=== PATIENT | male | born 1990 | race Caucasian/White ===

== ENCOUNTER → 2021-03-25 | Outpatient (CLI) | payer MEDICAID ==
[~2021-03-25] MED LIST: CALCIUM CARBON500 M1 PO; CARBATROL300 MG PO; COLACE LIQUI10 MG/ML PEG; DEPAKOTE500 M1 PO; DSS100 MG PO; FIBER CHOICE1 CTB PO; ISOSOURCE PEG; OMNICEF250 MG/5 M PO; PRILOSEC 20MG20 MG PO; REGLAN 10M10 MG/2 ML; REGLAN 10MG/11 MG/ML PEG; REGLAN 5MG5 MG PO; TEGRETOL SUS20 MG/ML PO; ULTRAM50 MG PEG; UNABLE; VERAMYST27.5 MCG/A NS; VITAMIN D50000 IU PEG; ZYRTEC 10MG10 MG PO; ZYRTEC SYRUP1 MG/ML PO
== END ==
LOC: DIET.TELE 13:37
DX: R63.4 Abnormal weight loss (principal); G80.9 Cerebral palsy, unspecified; R13.10 Dysphagia, unspecified

== ENCOUNTER 2021-08-20 13:49 | Emergency (ER) | payer MEDICAID ==
[2021-08-20 15:02] VITALS: TEMP 98.1
[2021-08-20 15:29] LABS: HEMATOCRIT 39.1 % (42.0-52.0); HEMOGLOBIN 13.2 g/dl (13.5-18.0); MEAN CELL VOLUME 92 fl (80.0-100.0); MEAN CORPUSCULAR HEMOGLOBIN 31 pg (27-31); MEAN CORPUSCULAR HGB CONC 34 g/dl (33.0-37.0); MEAN PLATELET VOLUME 10.6 fl (7.4-10.4); PLATELET COUNT 250 K/mm3 (130-400); RED BLOOD COUNT 4.25 M/mm3 (4.20-5.60); REDCELL DISTRIBUTION WIDTH-CV 12.8 % (11.5-14.5)
[2021-08-20 15:49] LABS: BAND 9 % (0-10); LYMPHOCYTE 18 % (20.0-51.0); NEUTROPHILS 61 % (42.0-75.2); PLATELET ESTIMATE NORMAL (NORMAL)
[2021-08-20 15:50] LABS: ALANINE AMINOTRANSFERASE 19 U/L (0-55); ALBUMIN 3.6 gm/dL (3.5-5.0); ALKALINE PHOSPHATASE 73 U/L (40-150); ANION GAP 13 mmol/L (7-16); AST,SGOT 22 U/L (5-34); BILIRUBIN,TOTAL 0.5 mg/dL (0.2-1.2); BLOOD UREA NITROGEN 7 mg/dL (9-21); C-REACTIVE PROTEIN 3.44 mg/dL (0.00-0.50); CALCIUM 9.1 mg/dL (8.4-10.2); CARBON DIOXIDE 26 mmol/L (22-29); CHLORIDE 91 mmol/L (98-107); CREATININE, serum 0.49 mg/dL (0.72-1.25); GLUCOSE 88 mg/dL (70-99); LIPASE < 10 U/L (8-78); POTASSIUM 4.2 mmol/L (3.5-4.5); SODIUM 130 mmol/L (136-145); TOTAL PROTEIN 8.1 gm/dL (6.2-8.1)
[2021-08-20] MEDS ORDERED: SIMETHICONE 1 ML1 ML PEG (21:48)
[2021-08-20 22:00] VITALS: BP 132/61; PULSE 88
== END 2021-08-20 22:10 | disposition home or self-care (01) ==
LOC: COL.ER 13:49
PROVIDERS: Emergency Medicine
DX: R14.0 Abdominal distension (gaseous) (principal); K94.29 Other complications of gastrostomy
CPT/HCPCS: J2060; J3010; J7030; Q9967

== ENCOUNTER 2021-09-02 00:24 | Emergency (ER) | payer MEDICAID ==
[~2021-09-02 00:24] MED LIST changes: +SIMETHICONE 1 ML1 ML PEG
[2021-09-02 00:25] VITALS: TEMP 98.4
[2021-09-02 01:03] LABS: BASO % 0.8 % (0.0-2.0); EOS % 0.6 % (0.0-4.0); GRAN # 2.3 K/mm3 (1.4-6.5); GRAN % 43.1 % (42.2-75.2); HEMOGLOBIN 12.7 g/dl (13.5-18.0); LYMPH # 1.7 K/mm3 (1.2-3.4); LYMPH % 31.9 % (20.0-51.0); MEAN CELL VOLUME 90 fl (80.0-100.0); MEAN CORPUSCULAR HEMOGLOBIN 31 pg (27-31); MEAN CORPUSCULAR HGB CONC 35 g/dl (33.0-37.0); MEAN PLATELET VOLUME 10.9 fl (7.4-10.4); MONO # 1.2 K/mm3 (0.1-0.6); MONO % 23.2 % (1.7-9.3); PLATELET COUNT 213 K/mm3 (130-400); RED BLOOD COUNT 4.09 M/mm3 (4.20-5.60); REDCELL DISTRIBUTION WIDTH-CV 12.6 % (11.5-14.5)
[2021-09-02 01:08] LABS: HEMATOCRIT 36.8 % (42.0-52.0)
[2021-09-02 01:09] LABS: INR 1.1 (0.8-3.0); PROTHROMBIN TIME 12.4 SECONDS (9.7-12.8)
[2021-09-02 01:11] LABS: PARTIAL THROMBOPLASTIN TIME 29.2 SECONDS (26.0-37.0)
[2021-09-02 01:18] LABS: CALCIUM 8.6 mg/dL (8.4-10.2); CREATININE, serum 0.48 mg/dL (0.72-1.25); POTASSIUM 3.9 mmol/L (3.5-4.5)
[2021-09-02] MEDS ORDERED: CEPHALEXIN500 M1 PO (02:17)
[2021-09-02 03:13] VITALS: BP 160/94; PULSE 97
== END 2021-09-02 04:06 | disposition home or self-care (01) ==
LOC: COL.ER 00:24
PROVIDERS: Emergency Medicine
DX: U07.1 COVID-19 (principal); S79.911A Unspecified injury of right hip, initial encounter; Z86.69 Personal history of other diseases of the nervous system and sense organs; W06.XXXA Fall from bed, initial encounter
CPT/HCPCS: J0690; J3010; J7040

== ENCOUNTER 2022-04-16 14:30 | Inpatient (IN) | payer MEDICAID ==
[2022-04-16] VITALS (205 sets, daily range): BP systolic 194; BP diastolic 98; PULSE 105; TEMP 97.7; O2SAT 48–100
[~2022-04-16] VITALS: Ht 157.5 cm; Wt 75.6 kg
[~2022-04-16 14:30] MED LIST changes: +CEPHALEXIN500 M1 PO
[2022-04-16 15:44] LABS: COLLECTION METHOD CATHETER
[2022-04-16 15:47] LABS: MEAN CELL VOLUME 88 fl (80.0-100.0); MEAN CORPUSCULAR HEMOGLOBIN 32 pg (27-31); MEAN CORPUSCULAR HGB CONC 36 g/dl (33.0-37.0); MEAN PLATELET VOLUME 11.3 fl (7.4-10.4); PLATELET COUNT 203 K/mm3 (130-400); RED BLOOD COUNT 3.81 M/mm3 (4.20-5.60); REDCELL DISTRIBUTION WIDTH-CV 12.5 % (11.5-14.5)
[2022-04-16 15:52] LABS: HEMATOCRIT 33.4 % (42.0-52.0)
[2022-04-16 16:05] LABS: PH 8.5 (5.0-8.5); URINE APPEARANCE Hazy (CLEAR/HAZY); URINE BLOOD TRACE-INTACT (NEGATIVE); URINE COLOR Yellow (YELLOW); URINE GLUCOSE Negative (NEGATIVE); URINE KETONE Negative (NEGATIVE); URINE NITRATE Negative (NEGATIVE); URINE PROTEIN(semi-quant) 1+ (NEGATIVE)
[2022-04-16 16:08] LABS: SQUAMOUS EPITHELIAL None Seen /hpf (0-10); URINE BACTERIA None Seen /hpf (NONE SEEN); URINE WBC 0-2 /hpf (0-2)
[2022-04-16 16:09] LABS: ALBUMIN 3.4 gm/dL (3.5-5.0); BILIRUBIN,TOTAL 0.6 mg/dL (0.2-1.2); CALCIUM 8.8 mg/dL (8.4-10.2); CREATININE, serum 0.55 mg/dL (0.72-1.25); POTASSIUM 3.7 mmol/L (3.5-4.5)
[2022-04-16] MEDS ORDERED: DEPAKENE 250 MG/1 ML PO (16:17)
[2022-04-16] MEDS ORDERED: ZYRTEC SYRUP1 MG/ML PO (16:19)
[2022-04-16 16:25] LABS: BAND 5 % (0-10); EOSINOPHIL 1 % (0-4); LYMPHOCYTE 6 % (20.0-51.0); NEUTROPHILS 75 % (42.0-75.2); PLATELET ESTIMATE NORMAL (NORMAL)
[2022-04-16] MEDS ORDERED: PEPCID COMPLETE1 CTB PO (16:25)
[2022-04-16] MEDS ORDERED: VITAMIN D3500 UNIT/5 PO (16:27)
[2022-04-16] MEDS ORDERED: SILACE150 MG/15 PO (16:28)
[2022-04-16] MEDS ORDERED: FLONASE NASAL S16 GM NS (17:11)
[2022-04-16] MEDS ORDERED: MIACALCIN NASA3.7 ML NS (17:12)
[2022-04-16] MEDS ORDERED: ZEGERID1 PK1 PO (17:14)
--- NOTE | 2022-04-16 18:55 | NUR ---
PT ADMITTED FROM ED FOR SEPSIS AND FALL. PT IS NON VERBAL, DEAF AND BLIND. PT IS HYPERTENSIVE AND TACHYCARDIC. PT IN BED WITH BEDALARM ACTIVE. 1910- VIOLETA MYRICK CALLED REGARDING HTN, AND IVF. STATED GIVE THE 2 NS BOLUS' AND IVF. WILL GIVE PRN LABATELOL. REPORT GIVEN TO VAN EL.
--- NOTE | 2022-04-16 19:32 | NUR ---
Vancomycin Initial Dosing Pharmacy Note Ordering provider: Dennis Lugo MD Indication/duration: Empiric, 7 days LABS: SCr 0.55, CrCl~145, GFR 134 Recommendation: Received loading dose of Vancomycin 1.5 gm IV x1 in ED. Continue Vancomycin 1 gm IV q8h. Pharmacy will continue to closely monitor and check Vancomycin trough on 04/18/22. Loading dose: 1.5 grams Maintenance dose: 1 gram every 8 hours Trough goal: 15-20 ug/mL
[2022-04-16 20:03] LABS: CALCIUM 8.3 mg/dL (8.4-10.2); CREATININE, serum 0.41 mg/dL (0.72-1.25); POTASSIUM 3.8 mmol/L (3.5-4.5)
--- NOTE | 2022-04-16 20:49 | NUR ---
UNABLE TO COMPLETE ADMISSION INTAKE ASSESSEMENT/SUICIDE SCREENING AT THIS TIME. PT IS NON VERBAL AND NO FAMILY IS LISTED TO OBTAIN INFORMATION FROM AT THIS TIME.
--- NOTE | 2022-04-16 22:12 | NUR ---
BEDSIDE SHIFT REPORT FROM NIKKO HUNG. PT CURRENTLY IN BED, BOLUS RUNNING (SEE DRIP FLOW SHEET). MORALES DRAINING APPROPRIATELY. PEG CLAMPED. BP 186/123, 10 MG IV LABETALOL GIVEN. WILL MONITOR BP Q15MIN. PT APPEARS AGGITATED, MOANING AND RESTLESS.
[2022-04-16 22:25] LABS: CALCIUM 8.5 mg/dL (8.4-10.2); CREATININE, serum 0.42 mg/dL (0.72-1.25); POTASSIUM 3.8 mmol/L (3.5-4.5)
--- NOTE | 2022-04-16 22:26 | NUR ---
PRN 2ML IV LABETALOL GIVEN FOR BP 186/115
[2022-04-17] VITALS (327 sets, daily range): BP systolic 144–178; BP diastolic 80–131; PULSE 87–118; TEMP 97.8–98.9; O2SAT 47–100
--- NOTE | 2022-04-17 01:07 | NUR ---
PRN LABETALOL 10MG IV GIVEN FOR BP 174/109
[2022-04-17 02:34] LABS: CALCIUM 8.1 mg/dL (8.4-10.2); CREATININE, serum 0.41 mg/dL (0.72-1.25); POTASSIUM 3.5 mmol/L (3.5-4.5)
--- NOTE | 2022-04-17 03:45 | NUR ---
PRN LABETALOL 10MG IV GIVEN FOR BP 156/125
[2022-04-17 06:15] LABS: HEMOGLOBIN 11.1 g/dl (13.5-18.0); MEAN CORPUSCULAR HEMOGLOBIN 32 pg (27-31); MEAN CORPUSCULAR HGB CONC 34 g/dl (33.0-37.0); MEAN PLATELET VOLUME 11.2 fl (7.4-10.4); PLATELET COUNT 184 K/mm3 (130-400); RED BLOOD COUNT 3.52 M/mm3 (4.20-5.60); REDCELL DISTRIBUTION WIDTH-CV 13.1 % (11.5-14.5)
[2022-04-17 06:19] LABS: HEMATOCRIT 32.6 % (42.0-52.0); MEAN CELL VOLUME 93 fl (80.0-100.0)
[2022-04-17 06:28] LABS: ALBUMIN 3.1 gm/dL (3.5-5.0); BILIRUBIN,TOTAL 0.7 mg/dL (0.2-1.2); CALCIUM 8.7 mg/dL (8.4-10.2); CREATININE, serum 0.45 mg/dL (0.72-1.25); POTASSIUM 3.8 mmol/L (3.5-4.5); TOTAL PROTEIN 7.3 gm/dL (6.2-8.1)
[2022-04-17 06:57] LABS: BAND 2 % (0-10); EOSINOPHIL 1 % (0-4); LYMPHOCYTE 9 % (20.0-51.0); NEUTROPHILS 69 % (42.0-75.2)
[2022-04-17 06:58] LABS: PLATELET ESTIMATE NORMAL (NORMAL)
--- NOTE | 2022-04-17 08:36 | NUR ---
PT INITALLY RESTLESS AND MOANING UPON ASSESSMENT WITH AN ELEVATED BLOOD PRESSURE. PRN ATIVAN AND LABETALOL GIVEN. PT NOW APPEARS TO BE MORE COMFORTABLE; RESTING QUIETLY.
[2022-04-17 10:24] LABS: CALCIUM 8.6 mg/dL (8.4-10.2); CREATININE, serum 0.45 mg/dL (0.72-1.25)
[2022-04-17 12:38] LABS: PHOSPHOROUS 2.5 mg/dL (2.3-4.7)
--- NOTE | 2022-04-17 14:55 | NUR ---
REPORT GIVEN TO NIKKO MYERS. PT BEING MOVED TO MEDICAL ROOM 315. PT CAREGIVER FROM [facility] MADE AWARE OF ROOM CHANGE AND UPDATED ON PT'S CONDITION.
--- NOTE | 2022-04-17 18:50 | NUR ---
NIGHT RN GIVEN REPORT. PATIENT CURRENTLY RESTING BED, SLEEPING. MORALES INTACT. LH IV WITH 1/2 INFUSING AT 50CC. KANGAROO PUMP WITH 25CC/HR TUBE FEED AND 30CC Q4H FLUSH SET UP. RN VIEWED ALL IN ROOM IN REPORT. PASSED ON TUBE FEED ORDERS. PATIENT IN STABLE CONDITON. NIGHT RN WILL CONTINUE CARE.
[2022-04-18 00:40] VITALS: BP 177/103; PULSE 115; TEMP 98.7
[2022-04-18 05:23] VITALS: BP 172/100; PULSE 134; TEMP 98.3
--- NOTE | 2022-04-18 06:29 | NUR ---
SHIFT SUMMARY: PATIENT RESTED IN BED THIS SHIFT. PATIENT YELLED AND THREW ARMS AROUND ON AND OFF SINCE APPROX 0300. PATIENT HAD SOFT MODERATE BOWEL MOVEMENT. PATIENT TOLERATING TUBE FEEDS WELL AND RATE INCREASED TO 50ML/HR ORDERED. PATIENT RECEIVED PRN MORPHINE AND ATIVAN FOR DISCOMFORT/AGITATION. DRESSING TO RIGHT HIP DRY AND INTACT.
[2022-04-18 06:41] LABS: HEMOGLOBIN 10.3 g/dl (13.5-18.0); MEAN CELL VOLUME 96 fl (80.0-100.0); MEAN CORPUSCULAR HEMOGLOBIN 31 pg (27-31); MEAN CORPUSCULAR HGB CONC 33 g/dl (33.0-37.0); MEAN PLATELET VOLUME 11.3 fl (7.4-10.4); PLATELET COUNT 195 K/mm3 (130-400); REDCELL DISTRIBUTION WIDTH-CV 13.2 % (11.5-14.5)
[2022-04-18 06:52] LABS: HEMATOCRIT 31.6 % (42.0-52.0)
[2022-04-18 07:05] LABS: ALBUMIN 2.8 gm/dL (3.5-5.0); BILIRUBIN,TOTAL 0.6 mg/dL (0.2-1.2); CALCIUM 8.6 mg/dL (8.4-10.2); CREATININE, serum 0.47 mg/dL (0.72-1.25); MAGNESIUM 2.2 mg/dL (1.6-2.6); POTASSIUM 3.5 mmol/L (3.5-4.5); TOTAL PROTEIN 7.1 gm/dL (6.2-8.1)
[2022-04-18 07:52] LABS: BAND 1 % (0-10); BASOPHIL 1 % (0-2); LYMPHOCYTE 12 % (20.0-51.0); NEUTROPHILS 70 % (42.0-75.2); PLATELET ESTIMATE NORMAL (NORMAL)
[2022-04-18 07:53] LABS: HYPOCHROMIA 1+
[2022-04-18 07:57] VITALS: BP 172/103; PULSE 131; TEMP 98.6
[2022-04-18 11:46] VITALS: BP 192/102; PULSE 131; TEMP 97.7
[2022-04-18 16:02] VITALS: BP 171/115; PULSE 132; TEMP 98.7
[2022-04-18 19:16] VITALS: BP 193/112; PULSE 119; TEMP 98.4
[2022-04-19] VITALS (7 sets, daily range): BP systolic 132–187; BP diastolic 71–152; PULSE 118–149; TEMP 97.5–99.1
--- NOTE | 2022-04-19 06:24 | NUR ---
SHIFT SUMMARY: PATIENT YELLED OUT MOST OF SHIFT AND WAS RESTLESS. PATIENT GIVEN PRN ATIVAN WITH SOME EFFECTIVENESS AND PATIENT GIVEN PRN TYLENOL WITH EFFECTIVENESS. NEW IV STARTED AND PATIENT TOLERATED MAXIPIME AND VANCO WELL. PATIENT VOIDING WELL. PATIENT TOLERATING TUBE FEEDS WITH NO ISSUE. PATIENT NOTED TO HAVE 99.1 TEMPERATURE AXILLARY AND NOTED TO BE SWEATY. PRN TYLENOL GIVEN FOR THIS AND APPEARED TO HELP PATIENT REST MORE COMFORTABLY. DRESSING TO RIGH HIP DRY AND INTACT.
[2022-04-19 06:34] LABS: HEMOGLOBIN 10.9 g/dl (13.5-18.0); MEAN CELL VOLUME 95 fl (80.0-100.0); MEAN CORPUSCULAR HEMOGLOBIN 32 pg (27-31); MEAN CORPUSCULAR HGB CONC 34 g/dl (33.0-37.0); PLATELET COUNT 267 K/mm3 (130-400); RED BLOOD COUNT 3.43 M/mm3 (4.20-5.60); REDCELL DISTRIBUTION WIDTH-CV 13.4 % (11.5-14.5)
[2022-04-19 06:37] LABS: HEMATOCRIT 32.5 % (42.0-52.0)
[2022-04-19 06:57] LABS: BILIRUBIN,TOTAL 0.6 mg/dL (0.2-1.2); CREATININE, serum 0.46 mg/dL (0.72-1.25); POTASSIUM 3.3 mmol/L (3.5-4.5); TOTAL PROTEIN 7.8 gm/dL (6.2-8.1)
[2022-04-19 07:41] LABS: BAND 7 % (0-10); LYMPHOCYTE 9 % (20.0-51.0); NEUTROPHILS 68 % (42.0-75.2); PLATELET ESTIMATE NORMAL (NORMAL)
[2022-04-19 07:45] LABS: MAGNESIUM 2.2 mg/dL (1.6-2.6); PHOSPHOROUS 2.7 mg/dL (2.3-4.7)
--- NOTE | 2022-04-19 14:54 | NUR ---
New feeding started at 50 ml/hr and flushes of 75 ml Q4H.
--- NOTE | 2022-04-19 15:39 | NUR ---
Letter Stamping Machine Operator made contact with Samantha Bartlett, Decorative Cutting Machine Tender at [facility]. Patient lives at a assisted at [facility], which Samantha advised is currently housed in their day services building on [address]. Patient has 24/7 care and requires assistance with all ADLS. Patient has medications administered to him by [facility] staff. Patient has a power chair but cannot manuever it, patient has to rely on staff. Patient's primary care physician is Dr. Batista and his Guardian is Eliza Bland (ph#[phone]). SW faxed clinical updates to [facility]. Discharge Plan: [facility]
--- NOTE | 2022-04-19 18:56 | NUR ---
Pt was placed in airflow mattress, hygiene was provided. Barrier cream in the groin since he is developing irritation. Change of linens and gown. Patient continues with hypertension. Receiving feeding. He got all his meds per orders. Report given to cesar RN.
[2022-04-20 03:46] VITALS: BP 129/72; PULSE 124; TEMP 97.6
--- NOTE | 2022-04-20 07:21 | NUR ---
VSS, TF AT GOAL RATE, FALL PRECAUTIONS IN PLACE, SEIZURE PADS IN PLACE
[2022-04-20 07:24] VITALS: BP 154/107; PULSE 131; TEMP 97.7
[2022-04-20 11:03] LABS: POTASSIUM 4.4 mmol/L (3.5-4.5)
[2022-04-20 11:10] VITALS: BP 127/80; PULSE 121; TEMP 99
[2022-04-20 11:33] LABS: MEAN CELL VOLUME 98 fl (80.0-100.0); MEAN CORPUSCULAR HEMOGLOBIN 31 pg (27-31); MEAN CORPUSCULAR HGB CONC 32 g/dl (33.0-37.0); PLATELET COUNT 258 K/mm3 (130-400); RED BLOOD COUNT 3.19 M/mm3 (4.20-5.60); REDCELL DISTRIBUTION WIDTH-CV 13.6 % (11.5-14.5)
[2022-04-20 11:39] LABS: CALCIUM 8.5 mg/dL (8.4-10.2); CREATININE, serum 0.42 mg/dL (0.72-1.25)
[2022-04-20 11:43] LABS: HEMATOCRIT 31.1 % (42.0-52.0)
[2022-04-20 12:04] LABS: HYPOCHROMIA 1+; LYMPHOCYTE 9 % (20.0-51.0); NEUTROPHILS 76 % (42.0-75.2); PLATELET ESTIMATE NORMAL (NORMAL)
--- NOTE | 2022-04-20 16:07 | NUR ---
Tower Erector Helper spoke with [facility] RNBernadette and faxed clinical updates. FRANKY then contacted patient's Guardian, Eliza who advised she had no questions or concerns at this time. FRANKY provided Eliza with phone number.
[2022-04-20 16:18] VITALS: BP 163/107; PULSE 116; TEMP 97.8
[2022-04-20 19:49] VITALS: BP 174/105; PULSE 119; TEMP 98.5
[2022-04-21] VITALS (7 sets, daily range): BP systolic 151–174; BP diastolic 88–119; PULSE 90–128; TEMP 97.9–98.8
[2022-04-21 06:58] LABS: HEMOGLOBIN 10.2 g/dl (13.5-18.0); MEAN CELL VOLUME 95 fl (80.0-100.0); MEAN CORPUSCULAR HEMOGLOBIN 32 pg (27-31); MEAN CORPUSCULAR HGB CONC 34 g/dl (33.0-37.0); MEAN PLATELET VOLUME 10.8 fl (7.4-10.4); PLATELET COUNT 287 K/mm3 (130-400); REDCELL DISTRIBUTION WIDTH-CV 13.5 % (11.5-14.5)
[2022-04-21 07:04] LABS: HEMATOCRIT 30.4 % (42.0-52.0)
[2022-04-21 07:24] LABS: ALBUMIN 2.6 gm/dL (3.5-5.0); CALCIUM 8.6 mg/dL (8.4-10.2); CREATININE, serum 0.4 mg/dL (0.72-1.25); POTASSIUM 4.6 mmol/L (3.5-4.5)
--- NOTE | 2022-04-21 07:24 | NUR ---
PT HYPERTENSIVE, OTHER VSS, PT RESTING IN BED
[2022-04-21 08:24] LABS: BAND 2 % (0-10); EOSINOPHIL 2 % (0-4); LYMPHOCYTE 15 % (20.0-51.0); NEUTROPHILS 62 % (42.0-75.2); PLATELET ESTIMATE NORMAL (NORMAL)
--- NOTE | 2022-04-21 10:40 | NUR ---
PT'S BP ELEVATED THIS AM, Ivone CUELLAR NOTIFIED, NO NEW ORDERS
--- NOTE | 2022-04-21 12:09 | NUR ---
PT DESAT TO UPPER 70'S ON ROOM AIR, Ivone REES SYSTEMS DEVELOPMENT MANAGER NOTIFIED, NEW ORDERS FOR ABG AND CHEST X RAY
--- NOTE | 2022-04-21 13:43 | NUR ---
Hospitalist advised they are recommending transfer for patient and are having difficulty reaching patient's guardian. FRANKY contacted Benefits Sales Consultant, Samantha for assistance. Guardian made contact with Hospitalist and they are working on transfer. FRANKY contacted Samantha and updated her on transfer recommendation. FRANKY also faxed updates to [facility].
[2022-04-21 14:23] LABS: ARTERIAL BLD GAS O2 SATURATION 96.6 % (92-100); ARTERIAL BLD GAS TCO2 CT 29.9; ARTERIAL BLOOD GAS BASE EXCESS 3.8 (-2-2); ARTERIAL BLOOD GAS HCO3 28.6 meq/L (22-26); ARTERIAL BLOOD GAS PCO2 43.7 mmHg (35-45); ARTERIAL BLOOD GAS PO2 88.9 mmHg (80-100); ARTERIAL BLOOD GAS pH 7.43 (7.35-7.45)
--- NOTE | 2022-04-21 23:34 | NUR ---
Patient assessed around 2200. Full bed change provided, bed bath given. Given PRN Morphine and Ativan per orders. PEG tube feeding in progress, per orders. Specialty air mattress in place. In bed with high fall risk precautions in place. Bed alarm on.
--- NOTE | 2022-04-22 00:15 | NUR ---
Patient accepted to [facility] in [place]. Room # 4476 RN Report # [phone] Claritza spoke with patient's DPOA, Eliza, for consent to transfer.
[2022-04-22 00:39] VITALS: BP 145/93; PULSE 103; TEMP 98.5
[2022-04-22 04:55] VITALS: BP 167/89; PULSE 110; TEMP 97.5
--- NOTE | 2022-04-22 05:45 | NUR ---
Continues on PEG tube feedings per orders, as well as IV ABX. Patient has order for Protonix. Called pharmacy and asked about medication, as pill could not be crushed. Order changed by pharmacy, and given per orders. Changed and repositoned in bed. Hygiene cares provided. In bed with high fall risk precautions in place. Patient to transfer to another hospital today per Telephonic Nurse Case Manager.
[2022-04-22 06:59] LABS: ALBUMIN 2.6 gm/dL (3.5-5.0); CALCIUM 8.7 mg/dL (8.4-10.2); CREATININE, serum 0.44 mg/dL (0.72-1.25); PHOSPHOROUS 4.2 mg/dL (2.3-4.7); POTASSIUM 4.9 mmol/L (3.5-4.5)
--- NOTE | 2022-04-22 07:47 | NUR ---
PT TRANSFERRED TO [facility] PER EMS, PRIMITIVO EL GIVEN REPORT, NO FURTHER CONCERNS
== END 2022-04-22 07:48 | disposition short-term general hospital (02) | DRG 393 ==
LOC: COL.ER 14:30 → MEDICAL 18:15 → ICU 18:15 → MEDICAL 04-17 16:31
PROVIDERS: Emergency Medicine; Hospitalist; Internal Medicine; Physician Assistant; ADMIT Internal Medicine
DX: K94.22 Gastrostomy infection (principal); A41.9 Sepsis, unspecified organism; S72.142A Displaced intertrochanteric fracture of left femur, initial encounter for closed fracture; R65.20 Severe sepsis without septic shock; E87.2 Acidosis; E87.1 Hypo-osmolality and hyponatremia; Z23 Encounter for immunization; L03.311 Cellulitis of abdominal wall; H91.90 Unspecified hearing loss, unspecified ear; Z20.822 Contact with and (suspected) exposure to COVID-19; S00.03XA Contusion of scalp, initial encounter; W18.39XA Other fall on same level, initial encounter; G40.909 Epilepsy, unspecified, not intractable, without status epilepticus; G80.9 Cerebral palsy, unspecified; I16.0 Hypertensive urgency; S99.912A Unspecified injury of left ankle, initial encounter; I10 Essential (primary) hypertension; H54.7 Unspecified visual loss; Y83.3 Surgical operation with formation of external stoma as the cause of abnormal reaction of the patient, or of later complication, without mention of misadventure at the time of the procedure; B37.9 Candidiasis, unspecified; R09.02 Hypoxemia; Z88.8 Allergy status to other drugs, medicaments and biological substances; Y93.89 Activity, other specified; Y92.89 Other specified places as the place of occurrence of the external cause
CPT/HCPCS: OP; A4314; J0360; J0692; J1450; J1644; J1650; J2060; J2270; J3370; J7030; J7050; J7120; Q9967